=== PATIENT | female | born 1950 | race African-American/Black ===

== ENCOUNTER → 2020-11-09 | Outpatient (CLI) | payer MEDICARE ==
[2016-05-03 14:30] VITALS: BP 112/67
[~2020-11-09] MED LIST: ACET650T89 PO; ASPI-630 PO; FERR325T14 PO; GLIM4TAB8 PO; HYDR-3164 PO; IBUP-1027 PO; LATA2.5D3 EACHEYE; LOSA-73 PO; METF10007 PO; OXYC1TAB15 PO; OXYC1TAB19 PO; OXYC1TAB22 PO; TRIA80OI TP; WARF3TAB54 PO
--- NOTE | 2020-11-09 14:41 | RAD ---
3 views of the bilateral hands without comparison for polyarthralgia. FINDINGS: There is no fracture or acute osseous abnormality identified involving the metatarsal-phala ngeal joints or phalanges. There is severe destructive arthritis of the radiocarpal, ulnar carpal, in tercarpal, and carpometacarpal joints diffusely. Findings are bilateral and symmetrical. IMPRESSION: 1. Advanced inflammatory erosive articular changes throughout the wrists, in a bilateral symmetrical fashion. This favors the diagnosis of rheumatoid arthritis or other inflammatory arthropathies. Electronically signed by: Ry Patel MD (11/09/2020 2:38 PM) [id number]
--- NOTE | 2020-11-09 14:44 | RAD ---
3 views of each wrist without comparison for polyarthralgia. FINDINGS: As noted on the hand radiographs, there are are extensive erosive articular changes involvi ng the radiocarpal, ulnar carpal, intercarpal, and carpal metacarpal joints in a bilateral and symmet rical fashion. The bilateral and symmetrical nature as well as proximal distribution favors a diagnos is of rheumatoid arthritis or other inflammatory arthropathies. IMPRESSION: 1. Severe bilaterally symmetric erosive arthritic changes throughout the wrist most characteristic of rheumatoid arthritis. Electronically signed by: Ry Patel MD (11/09/2020 2:42 PM) [id number]
== END ==
LOC: RAD 09:07
PROVIDERS: ATTEND Internal Medicine
DX: M19.032 Primary osteoarthritis, left wrist (principal); M19.031 Primary osteoarthritis, right wrist; M86.8X4 Other osteomyelitis, hand
CPT/HCPCS: 73110-50; 73130-50